=== PATIENT | male | born 2000 | race Caucasian/White ===

== ENCOUNTER 2023-08-21 21:28 | Emergency (ER) | payer BC ==
[2023-08-21] MEDS ORDERED: Ondansetron ODT 4 MG TAB ONE (22:11)
[2023-08-21] MEDS ORDERED: Acetaminophen 500 MG TAB ONE (23:02)
== END 2023-08-21 23:14 | disposition home or self-care (01) ==
LOC: CSHERS 21:28
DX: S06.0X0A Concussion without loss of consciousness, initial encounter (principal); F10.129 Alcohol abuse with intoxication, unspecified; Y04.8XXA Assault by other bodily force, initial encounter
CPT/HCPCS: 70450; 70486; Q0162